=== PATIENT | male | born 1960 | race Caucasian/White ===

== ENCOUNTER 2024-01-11 07:25 | Outpatient (CLI) | payer OTHER, SELFPAY ==
--- NOTE | ~2024-01-11 | MR_ITS ---
MRI of the left knee Clinical history: Pain Technique: Coronal proton density and proton density-weighted images, sagittal proton-density and T2 fat-sat images, and axial proton-density fat-saturated images were acquired. Findings: Anterior and posterior cruciate ligaments are intact. Medial collateral ligament and the la teral collateral ligament complex are intact. Popliteus tendon is intact. There is radial tear at the posterior root of the medial meniscus. There is an additional oblique/hor izontal tear of the posterior horn and body of the medial meniscus. Lateral meniscus is intact. 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 There is mild chondral thinning of the femor al trochlea and medial lateral compartments. Extensor mechanism is intact. No significant joint effusion. Small Emery's cyst. There is a ganglion cyst extending behind the proximal tibia extending from the proximal tibiofibular joint. Impression: Radial tear at the posterior root of the medial meniscus. Additional horizontal/oblique tearing of th e posterior horn and body of the medial meniscus. Proximal tibiofibular joint ganglion cyst extending posterior to the proximal tibia. Mild degenerative changes, as above. Reviewed, dictated and finalized at location . T ATTENDANT Impression: Radial tear at the posterior root of the medial meniscus. Additional horizontal /oblique tearing of the posterior horn and body of the medial meniscus. Proximal tibiofibular joint ganglion cyst extending posterior to the proximal t ibia. Mild degenerative changes, as above.
== END 2024-01-11 07:26 | disposition home or self-care (01) ==
LOC: MICIMG 07:29
DX: S83.242A Other tear of medial meniscus, current injury, left knee, initial encounter (principal); X58.XXXA Exposure to other specified factors, initial encounter; M67.462 Ganglion, left knee; M22.42 Chondromalacia patellae, left knee
CPT/HCPCS: 73721